=== PATIENT | female | born 1970 | race Two or more races ===

== ENCOUNTER 2022-09-13 22:43 | Emergency (ER) | payer OTHER ==
[~2022-09-13] VITALS: Ht 165.1 cm; Wt 65.8 kg
[2022-09-14] MEDS ORDERED: CEPHALEXIN500 MG PO (02:29)
[2022-09-14] MEDS ORDERED: MUPIROCIN1 G1 TOP (02:29)
== END 2022-09-14 02:36 ==
LOC: ER 22:43
DX: S81.812A Laceration without foreign body, left lower leg, initial encounter (principal); W18.30XA Fall on same level, unspecified, initial encounter; Y93.K1 Activity, walking an animal; Y92.89 Other specified places as the place of occurrence of the external cause; Y99.9 Unspecified external cause status